=== PATIENT | male | born 1980 | race American Indian/Alaskan Native ===

== ENCOUNTER 2018-10-19 19:08 | Emergency (ER) | payer SELFPAY ==
--- NOTE | 2018-10-19 20:23 | Event Note ---
ED Screening Note ED Screening Note: R SHOULDER PAIN This initial assessment/diagnostic orders/clinical plan/treatment(s) is/are subject to change based on patients health status, clinical progression and re- assessment by fellow clinical providers in the ED. Further treatment and workup at subsequent clinical providers discretion. Patient/guardian urged not to elope from the ED as their condition may be serious if not clinically assessed and managed. Initial orders include: XRAY
--- NOTE | 2018-10-19 20:45 | XRay Report ---
Right shoulder 3 views 2024 INDICATION: Fall 10 days ago, right shoulder pain Negative study Signer Name: Sterling Molina MD Signed: 10/19/2018 8:41 PM Workstation Name: [id number]
[2018-10-19] MEDS ORDERED: FLEXERIL PO ONE (21:40)
[2018-10-19] MEDS ORDERED: DELTASONE PO ONE (21:40)
[2018-10-19] MEDS ORDERED: ULTRAM PO ONE (21:40)
--- NOTE | 2018-10-19 22:00 | Emergency Department Report ---
ED Upper Extremity Inj HPI - General Chief Complaint: Extremity Injury, Upper Stated Complaint: SHOULDER PAIN Time Seen by Provider: 10/19/18 20:23 Source: patient Mode of arrival: Ambulatory Limitations: No Limitations - History of Present Illness Initial Comments: pt is a 38 y/o aam who presents for right anterior shoulder pain 5/10 aching exacerbated by movement there is no deformity no swelling no wound, rom intact, there is no numbness no tingling weakness. MD Complaint: Injury to:: shoulder Onset/Timin -: week(s) Other Extremity Injury: Shoulder: Right (anterior shoulder ) Handedness: right Place: home Severity scale (0 -10): 5 Improves With: rest Worsens With: none Context: fall Associated Symptoms: heard/felt popping sensat. denies: weakness, numbness - Related Data Previous Rx's Medication Instructions Recorded Last Taken Type Cyclobenzaprine [Flexeril] 10 mg PO TID PRN #30 tablet 10/19/18 Unknown Rx Menthol/Camphor [[place]ro [place] 1 applicatio TP QID #1 tube 10/19/18 Unknown Rx Ointment] Naproxen [Naprosyn TAB] 500 mg PO BID PRN #30 tablet 10/19/18 Unknown Rx Allergies Allergy/AdvReac Type Severity Reaction Status Date / Time No Known Allergies Allergy Unverified 10/19/18 19:19 ED Review of Systems ROS: Stated complaint: SHOULDER PAIN Other details as noted in HPI Constitutional: denies: chills, fever Eyes: denies: eye pain, eye discharge, vision change ENT: denies: ear pain, throat pain Respiratory: denies: cough, shortness of breath, wheezing Cardiovascular: denies: chest pain, palpitations Endocrine: no symptoms reported Gastrointestinal: denies: abdominal pain, nausea, diarrhea Genitourinary: as per HPI Musculoskeletal: myalgia Skin: denies: rash, lesions Neurological: denies: headache, weakness, paresthesias Psychiatric: denies: anxiety, depression Hematological/Lymphatic: denies: easy bleeding, easy bruising ED Past Medical Hx - Past Medical History Previous Medical History?: No - Surgical History Past Surgical History?: Yes Additional Surgical History: "T&A when I was a child" - Social History Smoking Status: Never Smoker Substance Use Type: None - Medications Home Medications: Home Medications Medication Instructions Recorded Confirmed Last Taken Type Cyclobenzaprine [Flexeril] 10 mg PO TID PRN #30 tablet 10/19/18 Unknown Rx Menthol/Camphor [[place] 1 applicatio TP QID #1 tube 10/19/18 Unknown Rx Ointment] Naproxen [Naprosyn TAB] 500 mg PO BID PRN #30 tablet 10/19/18 Unknown Rx ED Physical Exam - General Limitations: No Limitations General appearance: alert, in no apparent distress - Head Head exam: Present: atraumatic, normocephalic - Eye Eye exam: Present: normal appearance, PERRL, EOMI Pupils: Present: normal accommodation - ENT ENT exam: Present: mucous membranes moist - Neck Neck exam: Present: normal inspection. Absent: tenderness, full ROM - Respiratory Respiratory exam: Present: normal lung sounds bilaterally. Absent: wheezes, stridor, chest wall tenderness - Cardiovascular Cardiovascular Exam: Present: regular rate, normal rhythm, normal heart sounds. Absent: systolic murmur, diastolic murmur, rubs, gallop - GI/Abdominal GI/Abdominal exam: Present: soft, normal bowel sounds. Absent: distended, tenderness, bruit, hernia - Rectal Rectal exam: Present: deferred - Extremities Exam Extremities exam: Present: normal inspection, full ROM, tenderness (right anterior shoulder pain ), normal capillary refill. Absent: joint swelling - Expanded Upper Extremity Exam Right Shoulder Exam: Present: normal inspection, full ROM, tenderness, other (right anteiror shoulder pain to deep palpain shoulder drop and open can intact testing consultant equal no deformity ). Absent: swelling, abrasion, laceration, ecchymosis, deformity, crepidus, dislocation, erythema, tenderness over AC joint Upper Arm exam: Present: full ROM. Absent: tenderness, swelling Elbow exam: Present: normal inspection, full ROM. Absent: tenderness, swelling Forearm Wrist exam: Present: normal inspection, full ROM. Absent: tenderness Hand Wrist exam: Present: normal inspection, full ROM. Absent: tenderness Neuro motor exam: Present: wrist extension intact, thumb opposition intact, thumb IP flexion intact, thumb adduction intact, fingers 2-5 abduction intact Neurosensory exam: Present: 2-point discrimination, radial nerve intact, ulnar nerve intact, median nerve intact Vascular: Present: normal capillary refill, radial pulse, brachial pulse, ulnar pulse. Absent: vascular compromise, pulse deficit radial art, pulse deficit ulnar art, pulse deficit brachial art - Back Exam Back exam: Present: normal inspection, CVA tenderness (R). Absent: full ROM, tenderness, CVA tenderness (L), muscle spasm, paraspinal tenderness, vertebral tenderness, rash noted - Neurological Exam Neurological exam: Present: alert, oriented X3, CN II-XII intact, normal gait, reflexes normal - Psychiatric Psychiatric exam: Present: normal affect, normal mood - Skin Skin exam: Present: warm, dry, intact, normal color ED Course Vital Signs 10/19/18 10/19/18 19:12 21:47 Temperature 98.7 F Pulse Rate 89 Respiratory 18 16 Rate Blood Pressure 174/100 O2 Sat by Pulse 99 Oximetry ED Medical Decision Making - Radiology Data Radiology results: report reviewed, image reviewed Patient: GEOFF WALLACE MR#: [id number] 20 : 1980 Acct:[id number] Age/Sex: 38 / M ADM Date: 10/19/18 Loc: ED Attending Dr: Ordering Physician: ED MD NORA Date of Service: 10/19/18 Procedure(s): XR shoulder 2+V RT Accession Number(s): [id number] cc: ED MD NORA Fluoro Time In Minutes: Right shoulder 3 views 2024 INDICATION: Fall 10 days ago, right shoulder pain Negative study Signer Name: Sterling Molina MD Signed: 10/19/2018 8:41 PM Workstation Name: [id number] Transcribed By: GJ Dictated By: Sterling Molina MD Electronically Authenticated By: Sterling Molina MD Signed Date/Time: 10/19/182040 DD/ 39 TD/TT: - Medical Decision Making shoulder xray normal no dislocation no deformity rom intact unrestricted , plan nsaid muscle relaxant analgesic balm. pt dc'd to home in stable condition at this time. pt dc'd to home in stable condition at this time. Critical care attestation.: If time is entered above; I have spent that time in minutes in the direct care of this critically ill patient, excluding procedure time. ED Disposition Clinical Impression: Strain of shoulder, right Qualifiers: Encounter type: initial encounter Qualified Code(s): S46.911A - Strain of unspecified muscle, fascia and tendon at shoulder and upper arm level, right arm, initial encounter Disposition: - TO HOME OR SELFCARE Is pt being admited?: No Does the pt Need Aspirin: No Condition: Stable Instructions: Shoulder Sprain (ED) Prescriptions: Cyclobenzaprine [Flexeril] 10 mg PO TID PRN #30 tablet PRN Reason: Muscle Spasm Naproxen [Naprosyn TAB] 500 mg PO BID PRN #30 tablet PRN Reason: pain Menthol/Camphor [[place] Ointment] 1 applicatio TP QID #1 tube Referrals: PK SANTANA MD [Staff Physician] - 3-5 Days Forms: Work/School Release Form(ED) Time of Disposition: 22:12
[2018-10-19 22:42] VITALS: BP 173/94
== END 2018-10-19 22:30 | disposition home or self-care (01) ==
LOC: ED 19:08
DX: S46.911A Strain of unspecified muscle, fascia and tendon at shoulder and upper arm level, right arm, initial encounter (principal); X58.XXXA Exposure to other specified factors, initial encounter; Y93.89 Activity, other specified; Y92.89 Other specified places as the place of occurrence of the external cause; Y99.8 Other external cause status
CPT/HCPCS: 73030; 99283; J7512

== ENCOUNTER 2020-01-08 11:06 | Emergency (ER) | payer OTHER ==
[2020-01-08 12:36] VITALS: BP 148/84
--- NOTE | 2020-01-08 13:10 | Emergency Department Report ---
Chief Complaint: Medical Clearance Stated Complaint: ABD PAINS Time Seen by Provider: 01/08/20 12:34 - HPI History of Present Illness: Patient is a 39-year-old male presents emergency room for a work excuse. He states that on January 01, 2020 he ate dinner at a [place] restaurant and later on that night he began to have nausea and vomiting. He states that it lasted for approximately 24-48 hours. He states that he had to call out of work and stay out for 2 days. He denies any symptoms at all currently. He denies any diarrhea, fever, hematochezia, hematemesis, melena, chest pain, shortness of breath, cough, abdominal pain. He denies any known sick contacts. He denies any recent travel. He states that his work advised him that he needed a work excuse to return to work. He states initially that they wanted him to get coronavirus testing but now they state that he just needs an excuse. He denies any past medical history. No allergies to medications. initial triage vitals appear to be inaccurate, repeated pts vitals in the exam room and his vitals are stable on exam: Non toxic appearing, no acute distress atraumatic, normocephalic normal appearance of the eyes, PERRL, EOMI, no periorbital edema or ecchymosis moist mucus membranes regular heart rate and rhythm, no gallops, no rubs, no murmurs breath sounds are clear bilaterally, no w/r/r, no respiratory distress, no accessory muscle use Abdomen is soft, nondistended, no abdominal tenderness palpation, no guarding, no rebound, no rigidity, normal bowel sounds, no peritoneal signs A&O x4, no focal neuro deficit skin is warm, dry, intact Patient is presenting to the emergency room for a work excuse He states he had a call out of work secondary to becoming ill after eating at a [place] restaurant and had nausea vomiting He has no symptoms at all currently He never experienced cough, shortness of breath, chest pain, sore throat, ear pain, diarrhea He has had no known sick contacts or recent travel Given that his job is concerned for coronavirus, he would have to self quarantine for 10 days from the onset of his symptoms He would have to be out until 01/11/2020 advised pt you may not return to work until 01/11/2020 as this will be 10 days from the onset of your symptoms. Increase your water intake. Follow-up with a primary care doctor. Please receive outpatient COVID-19 testing. you will need to self quarantine until 01/11/2020, do not go out in public. Return to emergen cy room for new or worsening symptoms. Discussed strict return precautions with patient Patient referred to primary care physician Medical screening examination performed there is no threat to life or limb at this time - Exam Vital Signs: Vital Signs 01/08/20 01/08/20 11:11 12:35 Temperature 98.8 F Pulse Rate 107 H 94 H Respiratory 15 16 Rate Blood Pressure 169/99 Blood Pressure 148/84 [Right] O2 Sat by Pulse 93 98 Oximetry MSE screening note: Focused history and physical exam performed. ED Medical Decision Making - Lab Data Vital Signs 01/08/20 01/08/20 11:11 12:35 Temperature 98.8 F Pulse Rate 107 H 94 H Respiratory 15 16 Rate Blood Pressure 169/99 Blood Pressure 148/84 [Right] O2 Sat by Pulse 93 98 Oximetry ED Disposition for MSE Clinical Impression: Encounter for medical screening examination Disposition: Z-[id number] MED SCREENING EXAM-LEFT Is pt being admited?: No Does the pt Need Aspirin: No Condition: Stable Instructions: Gastritis (ED), Viral Syndrome (ED) Additional Instructions: you may not return to work until 01/11/2020 as this will be 10 days from the onset of your symptoms. Increase your water intake. Follow-up with a primary care doctor. Please receive outpatient COVID-19 testing. you will need to self quarantine until 01/11/2020, do not go out in public. Return to emergency room for new or worsening symptoms. Referrals: EFRA COMER MD [Primary Care Provider] - 2-3 Days MILTON ROWLAND MD [Staff Physician] - 2-[address] [facility] [Provider Group] - 2-3 Days Forms: Work/School Release Form(ED) Time of Disposition: 13:10 Print Language: [place]
== END 2020-01-08 13:21 | disposition left against medical advice (07) ==
LOC: ED 11:06
DX: Z00.00 Encounter for general adult medical examination without abnormal findings (principal); Z53.21 Procedure and treatment not carried out due to patient leaving prior to being seen by health care provider
CPT/HCPCS: 99281